=== PATIENT | male | born 1975 | race American Indian/Alaskan Native ===

== ENCOUNTER 2016-08-22 13:32 | Emergency (ER) | payer BC ==
--- NOTE | 2016-08-22 17:06 | Emergency Department Report ---
- General Chief complaint: Skin/Abscess/Foreign Body Stated complaint: ABCESS ON CHEST Time Seen by Provider: 08/22/16 16:52 Source: patient Mode of arrival: Ambulatory Limitations: No Limitations - History of Present Illness MD complaint: other (nodule under left breast, nipple is inverted, there is no oozing, there is significant redness and ttp.) -: week(s) (1) Tetanus Up to Date: no Location: chest Severity: moderate Severity scale (0 -10): 7 Quality: aching Consistency: constant Improves with: none Worsens with: palpation Associated symptoms: denies other symptoms Treatments Prior to Arrival: none - Related Data Previous Rx's Medication Instructions Recorded Last Taken Type Cephalexin [Keflex] 500 mg PO BID #20 capsule 08/22/16 Unknown Rx HYDROcodone/APAP 7.5-325 [Bieber 7.5 mg PO BID #14 oral.liqd 08/22/16 Unknown Rx 7.5-325 mg per 15 ML] Sulfamethoxazole/Trimethoprim 1 each PO BID #20 tablet 08/22/16 Unknown Rx [Bactrim DS TAB] Allergies Allergy/AdvReac Type Severity Reaction Status Date / Time No Known Allergies Allergy Unverified 08/22/16 15:40 Abscess Boil HPI - HPI Chief Complaint: Skin/Abscess/Foreign Body Stated Complaint: ABCESS ON CHEST Time Seen by Provider: 08/22/16 16:52 Home Medications: Previous Rx's Medication Instructions Recorded Last Taken Type Cephalexin [Keflex] 500 mg PO BID #20 capsule 08/22/16 Unknown Rx HYDROcodone/APAP 7.5-325 [Bieber 7.5 mg PO BID #14 oral.liqd 08/22/16 Unknown Rx 7.5-325 mg per 15 ML] Sulfamethoxazole/Trimethoprim 1 each PO BID #20 tablet 08/22/16 Unknown Rx [Bactrim DS TAB] Allergies/Adverse Reactions: Allergies Allergy/AdvReac Type Severity Reaction Status Date / Time No Known Allergies Allergy Unverified 08/22/16 15:40 ED Review of Systems ROS: Stated complaint: ABCESS ON CHEST Other details as noted in HPI Constitutional: denies: chills, fever Eyes: denies: eye pain, eye discharge, vision change Respiratory: denies: cough, shortness of breath, wheezing Cardiovascular: denies: chest pain, palpitations Gastrointestinal: denies: abdominal pain, nausea, diarrhea Genitourinary: denies: urgency, dysuria Musculoskeletal: denies: back pain, joint swelling, arthralgia Skin: as per HPI. denies: rash, lesions Neurological: denies: headache, weakness, paresthesias ED Past Medical Hx - Past Medical History Hx Diabetes: Yes - Surgical History Past Surgical History?: No - Social History Smoking Status: Never Smoker Substance Use Type: Alcohol - Medications Home Medications: Home Medications Medication Instructions Recorded Confirmed Last Taken Type Cephalexin [Keflex] 500 mg PO BID #20 capsule 08/22/16 Unknown Rx HYDROcodone/APAP 7.5-325 [Bieber 7.5 mg PO BID #14 oral.liqd 08/22/16 Unknown Rx 7.5-325 mg per 15 ML] Sulfamethoxazole/Trimethoprim 1 each PO BID #20 tablet 08/22/16 Unknown Rx [Bactrim DS TAB] ED Physical Exam - General Limitations: No Limitations General appearance: alert, in no apparent distress - Head Head exam: Present: atraumatic, normocephalic - Eye Eye exam: Present: normal appearance - Neck Neck exam: Present: normal inspection, full ROM - Respiratory Respiratory exam: Present: normal lung sounds bilaterally. Absent: respiratory distress - Cardiovascular Cardiovascular Exam: Present: regular rate, normal rhythm. Absent: systolic murmur, diastolic murmur, rubs, gallop - GI/Abdominal GI/Abdominal exam: Present: soft, normal bowel sounds - Back Exam Back exam: Present: normal inspection - Neurological Exam Neurological exam: Present: alert, oriented X3 - Psychiatric Psychiatric exam: Present: normal affect, normal mood - Skin Skin exam: Present: warm, dry, intact, normal color. Absent: rash - Other Other exam information: left breast is red, swollen, ttp, approx 3 inch nodule under nipple with nipple inversion, diameter of redness has been marked. ED Course Vital Signs 08/22/16 15:37 Temperature 98.6 F Pulse Rate 96 H Respiratory 18 Rate Blood Pressure 128/83 O2 Sat by Pulse 100 Oximetry - Reevaluation(s) Reevaluation #1: 08/22/16 19:49 Recheck patient's pain after hydrocodone. Patient states pain is now 0/10. ED Medical Decision Making - Lab Data Result diagrams: 08/22/16 17:21 08/22/16 17:21 - Medical Decision Making Patient presents with left breast redness and swelling, nodule under left nipple and inverted nipple. I have spoken to Dr. Kan about this patient and he is advised to send patient home on antibiotics by mouth, pain medication with a follow-up with Dr. Finn. I have stressed the importance with the surgeon to evaluate left breast swelling. He and his state they understands. - Differential Diagnosis abscess, carcinoma Critical Care Time: No Critical care attestation.: If time is entered above; I have spent that time in minutes in the direct care of this critically ill patient, excluding procedure time. ED Disposition Clinical Impression: Left breast mass, Cellulitis of left breast Disposition: DISCHARGED TO HOME OR SELFCARE Is pt being admited?: No Does the pt Need Aspirin: No Condition: Stable Instructions: Breast Mass (ED), Cellulitis (ED) Additional Instructions: It is imperative that you follow-up with Dr. Finn, surgeon as soon as possible for further evaluation. Return to ED if nausea, vomiting, chills, fever, chest pain, palpitation. Prescriptions: Cephalexin [Keflex] 500 mg PO BID #20 capsule HYDROcodone/APAP 7.5-325 [Bieber 7.5-325 mg per 15 ML] 7.5 mg PO BID #14 oral.liqd Sulfamethoxazole/Trimethoprim [Bactrim DS TAB] 1 each PO BID #20 tablet Referrals: ROLY PONCE MD [Primary Care Provider] - 3-5 Days GO FINN MD [Staff Physician] - 3-5 Days Forms: Work/School Release Form(ED) Time of Disposition: 21:09
[2016-08-22 17:49] LABS: Hematocrit 39.7 % (35.5-45.6); Hemoglobin 13.3 gm/dl (11.8-15.2); Mean Corpuscular HGB Conc 34 % (32-34); Mean Corpuscular Hemoglobin 29 pg (28-32); Mean Corpuscular Volume 86 fl (84-94); Platelet Count 189 K/mm3 (140-440); Red Blood Count 4.64 M/mm3 (3.65-5.03); Red Cell Distribution Width 13.6 % (13.2-15.2); White Blood Count 7.5 K/mm3 (4.5-11.0)
[2016-08-22 18:05] LABS: Alanine Aminotransferase 58 units/L (7-56); Albumin 4.4 g/dL (3.9-5); Albumin/Globulin Ratio 1.1 %; Alkaline Phosphatase 85 units/L (35-129); Anion Gap 21 mmol/L; BUN/Creatinine Ratio 13.33; Bilirubin,Total 0.4 mg/dL (0.1-1.2); Blood Urea Nitrogen 12 mg/dL (9-20); Calcium 9.3 mg/dL (8.4-10.2); Carbon Dioxide 25 mmol/L (22-30); Chloride 92.7 mmol/L (98-107); Glucose 264 mg/dL (75-100); Potassium 4.2 mmol/L (3.6-5.0); Sodium 134 mmol/L (137-145); Total Protein 8.4 g/dL (6.3-8.2)
[2016-08-22] MEDS: NORCO 7.5/325 PO ONE (18:55)
[2016-08-22] MEDS: NACL ONE (19:10)
--- NOTE | 2016-08-22 19:47 | Cat Scan Report ---
FINAL REPORT PROCEDURE: CT CHEST W CON TECHNIQUE: Computerized axial tomography of the chest was performed during the IV injection of iodinated nonionic contrast. HISTORY: left breast swelling/pain COMPARISON: No prior studies are available for comparison. TECHNICAL QUALITY: Satisfactory. FINDINGS: Pulmonary outflow tract, right and left main pulmonary arteries and their proximal branches: No focal abnormalities are identified. Pericardium: No evidence of pericardial effusion. Thoracic aorta: No evidence of aneurysmal dilatation or dissection. Coronary arteries: Are unremarkable. Mediastinum and hilar regions: Nonspecific subcentimeter lymph nodes are visualized. No pathologically enlarged lymph nodes or masses are identified. There is a mildly prominent lymph node in the left axilla measuring 14 millimeters x 11.5 millimeters. Lung Castle: Clear Upper abdomen: No acute or focal abnormality is seeen. Other: There is a mass visualized in the left breast anterior lateral on image 31 series 3. This measures 3.4 x 2.9 centimeters. Central aspect is lower density than the periphery. There is surrounding inflammatory change or edema present as well as a small indentation in the skin anterior to the mass. This may represent a retracted nipple. The surrounding skin appears thickened. IMPRESSION: Mass with significant surrounding inflammatory change visualized in the left breast. This abnormality could represent an abscess with surrounding edema and cellulitis however inflammatory carcinoma of the breast could also present this manner and needs to be excluded. There is a mildly prominent nonspecific lymph node in the left axilla.
[2016-08-22 19:56] LABS: Basophils % (Manual) 0 % (0.0-1.8); Blastocytes % (Manual) 0 %
[2016-08-22 19:57] LABS: Anisocytosis 1+; Diff Status Complete; Platelet Estimate Consistent w Auto; Poikilocytosis Rare
[2016-08-22] MEDS ORDERED: BOOSTRIX IM ONE (22:03)
[2016-08-22] MEDS: BOOSTRIX IM ONE (22:12)
[2016-08-22 22:21] VITALS: BP 115/86
== END 2016-08-22 22:22 | disposition home or self-care (01) ==
LOC: ED 13:32
DX: N63 Unspecified lump in breast (principal); E11.9 Type 2 diabetes mellitus without complications
CPT/HCPCS: 36415; 71260; 80053; 82140; 85007; 85025; 90471; 90715; 99284; Q9967